=== PATIENT | female | born 1975 ===

== ENCOUNTER 2023-06-10 10:23 | Emergency (ER) | payer SELFPAY ==
[2023-06-10 10:28] VITALS: BP 142/78; PULSE 87; RESP 18; TEMP 36.5; O2SAT 100
--- NOTE | 2023-06-10 10:28 | ECG_ITS ---
Measurements Intervals Eure Rate: 83 P: 66 OH: 220 QRS: 22 QRSD: 90 T: 126 QT: 385 QTc: 453 Interpretive Statements SINUS RHYTHM WITH FIRST DEGREE AV BLOCK LEFT VENTRICULAR HYPERTROPHY AND ST-T CHANGE [VOLTAGE CRITERIA PLUS ST/T ABNORMALITY] ABNORMAL ECG NO PREVIOUS ECG AVAILABLE FOR COMPARISON Electronically Signed On 06-10-2023 15:22:31 [employer]PER[employer] by Ilir Lin M.D.
== END 2023-06-10 13:35 | disposition left against medical advice (07) ==
PROVIDERS: Emergency Provider Emergency Medicine
DX: R42 Dizziness and giddiness (principal)
CPT/HCPCS: 93005; 99199